=== PATIENT | female | born 2000 | race Caucasian/White ===

== ENCOUNTER 2020-09-30 08:22 | Emergency (ER) | payer OTHER, MEDICAID ==
[~2020-09-30] VITALS: Ht 157.5 cm; Wt 61.7 kg
[2020-09-30 08:31] VITALS: Ht 157.5 cm; Wt 61.7 kg
[2020-09-30 09:56] LABS: POTASSIUM SERUM 3.5 mmol/L (3.5-5.1)
[2020-09-30 09:59] LABS: BASOPHIL % 0.6 % (0.2-1.3); PLATELET COUNT 214 x10^3mcL (179-408)
[2020-09-30 10:00] LABS: RED CELL DISTRIBUTION WIDTH 14.7 % (12.3-17.7)
[2020-09-30 10:09] LABS: ALBUMIN 3.8 g/dL (3.4-5.0); ALKALINE PHOSPHATASE 58 U/L (46-116); ALT/SGPT 3 U/L (14-59); AST/SGOT 45 U/L (15-37); BILIRUBIN TOTAL 0.5 mg/dL (0.20-1.00); CALCIUM 8.8 mg/dL (8.5-10.1); CARBON DIOXIDE 25.4 mmol/L (21-32); CHLORIDE SERUM 100 mmol/L (98-107); CREATININE SERUM 0.7 mg/dL (0.6-1.0); GFR1 > 60 mL/min; GLUCOSE SERUM 82 mg/dL (74-106); SODIUM SERUM 136 mmol/L (136-145); TOTAL PROTEIN, SERUM 7.8 g/dL (6.4-8.2)
[2020-09-30 11:36] VITALS: BP 120/82
[2020-09-30 12:42] LABS: AMPHETAMINE QUAL UR NONE DETECTED (See below)
== END 2020-09-30 11:36 | disposition home or self-care (01) ==
LOC: ED 08:22
PROVIDERS: Emergency Medicine
DX: R42 Dizziness and giddiness (principal); R53.1 Weakness; J45.909 Unspecified asthma, uncomplicated; F17.210 Nicotine dependence, cigarettes, uncomplicated
CPT/HCPCS: J7030; J8597